=== PATIENT | male | born 1955 | race Caucasian/White ===

== ENCOUNTER 2022-01-27 08:02 | Observation (INO) ==
[2022-01-27] MEDS ORDERED: D5 LR 1,000 ML 1,000 ML IV ONE (08:14)
[2022-01-27] MEDS: TOPROL XL PO SCH (09:15)
[2022-01-27 09:59] LABS: ALBUMIN 3.2 g/dL (3.4-5.0); CALCIUM 9.6 mg/dL (8.5-10.1); CARBON DIOXIDE 24.3 mmol/L (21-32); COR CA(FOR HYPOALB) 10.2 mg/dL (8.5-10.1); CREATININE 1.5 mg/dL (0.70-1.30); MAGNESIUM 1.7 mg/dL (1.7-2.9)
[2022-01-27] MEDS: LOVENOX INJ 40 MG SYR SC SCH (11:02)
[2022-01-27] MEDS: LR 1,000 ML IV 1,000 ML IV SCH ×2 (11:02→22:58)
[2022-01-27] MEDS: THIAMINE HCL INJ IVP SCH ×2 (11:02→20:10)
[2022-01-27 11:08] VITALS: BMI 34.2
[2022-01-27] MEDS ORDERED: GOLYTELY or GAVILYTE or Equivalent PO ONE (19:43)
[2022-01-27] MEDS ORDERED: GOLYTELY or GAVILYTE or Equivalent PO SCH (21:00)
[2022-01-28 05:29] LABS: BASOPHILS # (AUTO) 0.1 X10^3/uL (0.0-0.1); BASOPHILS % (AUTO) 0.9 % (0.2-1.0); EOSINOPHILS # (AUTO) 0.1 x10^3/uL (0.0-0.2); EOSINOPHILS % (AUTO) 1.3 % (0.9-2.9); HEMATOCRIT 38.7 % (42.0-54.0); LYMPHOCYTES # (AUTO) 1.9 X10^3/uL (1.3-2.9); LYMPHOCYTES % (AUTO) 19.2 % (21.0-51.0); MEAN CORPUSCULAR HEMOGLOBIN 27.4 pg (27.0-34.0); MEAN CORPUSCULAR HGB CONC 33.6 g/dL (33.0-35.0); MEAN CORPUSCULAR VOLUME 81.4 fL (80.0-100.0); MEAN PLATELET VOLUME 9.2 fL (7.4-11.0); MONOCYTES # (AUTO) 0.8 x10^3/uL (0.3-0.8); MONOCYTES % (AUTO) 8.4 % (0.0-13.0); NEUTROPHILS # (AUTO) 6.9 x10^3/uL (2.2-4.8); NEUTROPHILS % (AUTO) 70.2 % (42.0-75.0); RED BLOOD COUNT 4.75 X10^6/uL (4.7-6.0); RED CELL DISTRIBUTION WIDTH 16.1 % (11.6-16.5); WHITE BLOOD COUNT 9.9 X10^3/uL (3.6-10.0)
[2022-01-28 05:41] LABS: ALANINE AMINOTRANSFERASE 44 Units/L (12-78); ALBUMIN 2.6 g/dL (3.4-5.0); ALKALINE PHOSPHATASE 382 Units/L (46-116); ASPARTATE AMINO TRANSFERASE 22 Units/L (15-37); BLOOD UREA NITROGEN 21 mg/dL (7-18); CALCIUM 8.7 mg/dL (8.5-10.1); CARBON DIOXIDE 30.1 mmol/L (21-32); CHLORIDE 96 mmol/L (98-107); COR CA(FOR HYPOALB) 9.8 mg/dL (8.5-10.1); CREATININE 1.15 mg/dL (0.70-1.30); SODIUM 135 mmol/L (136-145); TOTAL PROTEIN 6.6 g/dL (6.4-8.2); eGFR NON BLACK RACES > 60 (>60)
[2022-01-28 09:00] LABS: CKMB % 3.9 % (<4); CREATINE KINASE 26 Units/L (39-308); CREATINE KINASE MB < 1.0 ng/mL (0-4.0)
[2022-01-28] MEDS ORDERED: TOPROL XL PO ONE (09:02)
[2022-01-28] MEDS: LOVENOX INJ 40 MG SYR SC SCH (09:17)
[2022-01-28] MEDS: TOPROL XL PO SCH (09:17)
[2022-01-28] MEDS: THIAMINE HCL INJ IVP SCH (09:17)
[2022-01-28] MEDS ORDERED: ELIQUIS PO SCH (10:15)
[2022-01-28] MEDS: LR 1,000 ML IV 1,000 ML IV SCH (13:02)
[2022-01-28 14:02] VITALS: BP 105/60
== END 2022-01-28 14:52 | disposition home health service (06) ==
LOC: ICU 08:02 → SURG1 08:02
PROVIDERS: ADMIT Surgery; ATTEND Obstetrics & Gynecology Obstetrics
DX: I48.91 Unspecified atrial fibrillation; Z79.01 Long term (current) use of anticoagulants; M62.81 Muscle weakness (generalized); R00.0 Tachycardia, unspecified; K60.3 Anal fistula